=== PATIENT | male | born 1955 | race Caucasian/White ===

== ENCOUNTER 2022-04-23 02:30 | Day surgery (SDC) | payer MEDICARE, OTHER, SELFPAY ==
[2022-04-10 15:29] VITALS: BMI 28.0
--- NOTE | 2022-04-23 06:39 | P.PNAN_ITS ---
Anes - Initial Pre Proc Eval Procedure: Operation Date: 04/23/22 08:00 Proposed Procedures p Screening Colonoscopy - Lavell Evans MD Date/Time: 04/23/22 06:39 Surgeon: Lavell Evans MD Pre Op Diagnosis: hx of colon polyps Patient Data Age: 66 Gender: M Height: 1.93 m Weight: 104.6 kg Allergies Allergy/AdvReac Type Severity Reaction Status Date / Time No Known Allergies Allergy Verified 04/23/22 06:49 Home Medications Medication Instructions Recorded Confirmed Type tadalafil 5 mg tablet (Cialis) 5 mg PO DAILY #30 tabs 07/27/20 04/10/22 Rx naproxen sodium 220 mg tablet 220 mg PO PRN PRN Pain 04/10/22 04/10/22 History (Aleve) atorvastatin 20 mg tablet See Rx Instructions .Route 04/17/22 04/23/22 Rx .COMPLEX #90 tabs Patient hx anesthesia problems: none Family hx anesthesia problems: none Results Review: All pre-operative results and documents have been reviewed as part of the pre- operative evaluation. [facility] Past Medical History Medical History (Updated 04/23/22 @ 07:26 by Lavell Evans MD) Mixed hyperlipidemia Family History Family History Mother Family history of glaucoma, Onset Age: 75 Grandparent Family history of glaucoma Sibling Family history of cardiovascular disease Cerebrovascular accident Patient's sister is , Onset Age: 60 Father Malignant neoplasm of prostate, Onset Age: 81 Social History Social History (Updated 03/15/22 @ 10:09 by Alexia Alcaraz PA-C) Smoking status: Never smoker Alcohol intake: never Substance use: never Substance use type: does not use Living arrangements: with family Spiritual care concerns: No Anes - Eval Final PreProcedure Day of Procedure 04/23/22 06:39 Patient weight: overweight Heart: regular rate and rhythm Lungs: clear to auscultation Airway: Mallampati scale class II Neurological: alert and oriented Last oral intake: >/= 8 hours ASA classification: II Emergent: no Anesthetic plan: proceed Anesthesia type and monitoring: general GIVS and standard monitoring Results Review: All pre-operative results and documents have been reviewed as part of the pre- operative evaluation. Informed Consent: The patient's anesthetic plan and its attendant risks and benefits were discussed with the patient/family/POA. Questions were solicited and answers provided to the satisfaction of the patient/family/POA.
[2022-04-23 06:50] VITALS: BP 143/93; PULSE 63; RESP 18; TEMP 36.3; O2SAT 97
[2022-04-23] MEDS: LACTATED RINGERS 1,000 ML 150 ML IV CONT (07:01)
--- NOTE | 2022-04-23 07:25 | PM.IMHP ---
H&P: HPI History of Present Illness Date/Time: 04/23/22 07:25 Chief Complaint: History of colon polyps. Narrative: This is a 66-year-old white male patient presents for screening colonoscopy. Patient's current weight appetite and bowel movements are normal. He denies abdominal pain. Patient has had no bleeding. Family history noncontributory. Patient does have a prior history of colon polyps in 2017. Has a history of unremarkable colonoscopy prior than 2006. Patient presents today for surveillance colonoscopy. Further recommendations will be given after endoscopy. Review of Systems Review of Systems: Review of systems noncontributory. [facility] Past Medical History Medical History (Updated 04/23/22 @ 07:26 by Lavell Evans MD) Mixed hyperlipidemia Family History Family History (Reviewed 03/15/22 @ 08:49 by Karli Hickey [facility]) Mother Family history of glaucoma, Onset Age: 75 Grandparent Family history of glaucoma Sibling Family history of cardiovascular disease Cerebrovascular accident Patient's sister is , Onset Age: 60 Father Malignant neoplasm of prostate, Onset Age: 81 Social History Social History (Updated 03/15/22 @ 10:09 by Alexia Alcaraz PA-C) Smoking status: Never smoker Alcohol intake: never Substance use: never Substance use type: does not use Living arrangements: with family Spiritual care concerns: No Meds Home Medications and Allergies Home Medications Medication Instructions Recorded Confirmed Type tadalafil 5 mg tablet (Cialis) 5 mg PO DAILY #30 tabs 07/27/20 04/10/22 Rx naproxen sodium 220 mg tablet 220 mg PO PRN PRN Pain 04/10/22 04/10/22 History (Aleve) atorvastatin 20 mg tablet See Rx Instructions .Route 04/17/22 04/23/22 Rx .COMPLEX #90 tabs Allergies Allergy/AdvReac Type Severity Reaction Status Date / Time No Known Allergies Allergy Verified 04/23/22 06:49 Vital Signs Vital Signs - 24 hr 04/23/22 06:50 Temperature 97.3 F L Pulse Rate 63 Respiratory Rate 18 Blood Pressure 143/93 H Pulse Oximetry 97 Oxygen Delivery Room Air Exam Narrative: Physical exam reveals patient to be alert. Vital signs stable. HEENT exam is unremarkable. Patient is anicteric. Lungs are clear to auscultation and percussion. Heart is without murmur or extra sounds. Abdominal exam bowel sounds are present soft nontender with no organomegaly. Digital external rectal exam is normal. Assessment and Plan Assessment and plan (1) History of colon polyps: Code(s): Z86.010 - Personal history of colonic polyps Status: Acute Assessment and Plan: Patient has a history of colon polyps. Plan is for surveillance colonoscopy at this time. Continue surveillance colonoscopy at intervals in the future is advised.
[2022-04-23 08:15] VITALS: BP 131/76; PULSE 56; RESP 18; O2SAT 95
[2022-04-23 08:25] VITALS: BP 131/90; PULSE 57; RESP 17; O2SAT 97
[2022-04-23 08:35] VITALS: BP 141/86; PULSE 51; RESP 22; O2SAT 94
== END 2022-04-23 08:43 | disposition home or self-care (01) ==
PROVIDERS: PCP Family Medicine; Visit Provider Internal Medicine Gastroenterology
PROC: 0DJD8ZZ Inspection of Lower Intestinal Tract, Via Natural or Artificial Opening Endoscopic (ICD-10-PCS; CPT 45378; principal; 2022-04-23 08:00)
DX: Z12.11 Encounter for screening for malignant neoplasm of colon (principal); K63.5 Polyp of colon; K64.8 Other hemorrhoids; K57.30 Diverticulosis of large intestine without perforation or abscess without bleeding; E78.2 Mixed hyperlipidemia
CPT/HCPCS: 45385; 88305; J2704; J7120

== ENCOUNTER 2023-10-02 08:00 | Outpatient (CLI) | payer MEDICARE, OTHER, SELFPAY ==
--- NOTE | ~2023-10-02 | US_ITS ---
EXAMINATION: US venous doppler LE RT DATE: 10/02/2023 08:21 INDICATION: Right lower limb pain TECHNIQUE: Andrade scale images without and with compression and Doppler images of the right lower extre mity veins were obtained. COMPARISON: None FINDINGS: The right common femoral vein, profunda femoral vein, femoral vein, popliteal vein, peronea l trunk, posterior tibial veins, and greater saphenous vein are patent. IMPRESSION: 1. Patent right lower extremity veins. No evidence of deep venous thrombosis. Reviewed, dictated and finalized at location B. ATION AGENT
== END 2023-10-02 08:01 | disposition home or self-care (01) ==
LOC: ANHIMG 08:02
PROVIDERS: PCP Family Medicine; Visit Provider Nurse Practitioner
DX: M79.604 Pain in right leg (principal)
CPT/HCPCS: 93971

== ENCOUNTER 2024-05-12 14:50 | Outpatient (CLI) | payer MEDICARE, OTHER, SELFPAY ==
--- NOTE | ~2024-05-12 | XR_ITS ---
EXAM: XR shoulder LT min 2V DATE: 05/12/2024 15:01 HISTORY: no injury left shoulder pain for 1 month . COMPARISON: None available. FINDINGS: Decreased mineralization. No fracture or dislocation. No lytic or blastic lesion. Mild AC joint and glenohumeral joint degenerative change. No erosion or periosteal change. Soft tissues withi n normal limits. IMPRESSION: No acute osseous finding the left shoulder. Mild polyarticular left shoulder osteoarthrit is. Osteopenia. Reviewed, dictated and finalized at location K. IMPRESSION: No acute osseous finding the left shoulder. Mild polyarticular left shoulder osteoarthritis. Osteopenia.
== END 2024-05-12 14:51 | disposition home or self-care (01) ==
PROVIDERS: PCP Nurse Practitioner; Visit Provider Nurse Practitioner
DX: M19.012 Primary osteoarthritis, left shoulder (principal); M85.812 Other specified disorders of bone density and structure, left shoulder
CPT/HCPCS: 73030